=== PATIENT | female | born 1995 | race American Indian/Alaskan Native ===

== ENCOUNTER 2019-01-09 20:46 | Emergency (ER) | payer OTHER ==
[2019-01-09 21:18] VITALS: BP 112/63
--- NOTE | 2019-01-09 21:30 | Emergency Department Report ---
Blank Doc - Documentation Documentation: cc of right inner groin pain, swelling and burning x 2 days doesnt recal insect bite took ibu for pain ACC eval
--- NOTE | 2019-01-09 23:43 | Emergency Department Report ---
- General Chief complaint: Skin/Abscess/Foreign Body Stated complaint: BITE ON RIGHT THIGH Time Seen by Provider: 01/09/19 21:28 Source: patient Mode of arrival: Ambulatory Limitations: No Limitations - History of Present Illness Initial comments: 23-year-old Samo[place] female presents to the emergency room for a boil-like lesion to the right upper thigh 2 days. Patient states she felt something bite her why she was at her mother's hair salon and then when she got home she noticed swelling redness and itchiness. Patient put that she took ibuprofen today and reports that the swelling has gone down. Patient complains of pain at a 5 out of 10. Patient has no other complaints. MD complaint: insect bite/sting -: days(s) (2) Tetanus Up to Date: unsure Location: RLE (thigh) Severity scale (0 -10): 5 Quality: burning Consistency: intermittent Improves with: medication Worsens with: none Associated symptoms: denies other symptoms Treatments Prior to Arrival: NSAID - Related Data Previous Rx's Medication Instructions Recorded Last Taken Type Ibuprofen [Motrin 600 MG tab] 600 mg PO Q8H PRN #15 tablet 01/09/19 Unknown Rx diphenhydrAMINE [Benadryl CAP] 25 mg PO Q8HR PRN #15 capsule 01/09/19 Unknown Rx Allergies Allergy/AdvReac Type Severity Reaction Status Date / Time No Known Allergies Allergy Unverified 01/09/19 21:30 Abscess Boil HPI - HPI Chief Complaint: Skin/Abscess/Foreign Body Stated Complaint: BITE ON RIGHT THIGH Time Seen by Provider: 01/09/19 21:28 Home Medications: Previous Rx's Medication Instructions Recorded Last Taken Type Ibuprofen [Motrin 600 MG tab] 600 mg PO Q8H PRN #15 tablet 01/09/19 Unknown Rx diphenhydrAMINE [Benadryl CAP] 25 mg PO Q8HR PRN #15 capsule 01/09/19 Unknown Rx Allergies/Adverse Reactions: Allergies Allergy/AdvReac Type Severity Reaction Status Date / Time No Known Allergies Allergy Unverified 01/09/19 21:30 ED Review of Systems ROS: Stated complaint: BITE ON RIGHT THIGH Other details as noted in HPI Comment: All other systems reviewed and negative Constitutional: denies: chills, fever Eyes: denies: eye pain, eye discharge, vision change ENT: denies: ear pain, throat pain Respiratory: denies: cough, shortness of breath, wheezing Cardiovascular: denies: chest pain, palpitations Endocrine: no symptoms reported Gastrointestinal: denies: abdominal pain, nausea, diarrhea Genitourinary: denies: urgency, dysuria, discharge Musculoskeletal: denies: back pain, joint swelling, arthralgia Skin: lesions Neurological: denies: headache, weakness, paresthesias Psychiatric: denies: anxiety, depression Hematological/Lymphatic: denies: easy bleeding, easy bruising ED Past Medical Hx - Past Medical History Previous Medical History?: No - Surgical History Past Surgical History?: Yes Additional Surgical History: Tosillectomy - Social History Smoking Status: Never Smoker Substance Use Type: None - Medications Home Medications: Home Medications Medication Instructions Recorded Confirmed Last Taken Type Ibuprofen [Motrin 600 MG tab] 600 mg PO Q8H PRN #15 tablet 01/09/19 Unknown Rx diphenhydrAMINE [Benadryl CAP] 25 mg PO Q8HR PRN #15 capsule 01/09/19 Unknown Rx ED Physical Exam - General Limitations: No Limitations General appearance: alert, in no apparent distress - Head Head exam: Present: atraumatic, normocephalic - Eye Eye exam: Present: normal appearance - ENT ENT exam: Present: mucous membranes moist - Neck Neck exam: Present: normal inspection - Cardiovascular Cardiovascular Exam: Present: regular rate, normal rhythm. Absent: systolic murmur, diastolic murmur, rubs, gallop - Neurological Exam Neurological exam: Present: alert, oriented X3 - Psychiatric Psychiatric exam: Present: normal affect, normal mood - Expanded Skin Exam Expanded Type of lesion: Present: bite/sting Description of rash: Present: erythematous, macular. Absent: tenderness, swelling, discharge, fluctuant, indurated ED Course Vital Signs 01/09/19 01/09/19 21:16 21:29 Temperature 98.6 F 98.6 F Pulse Rate 79 83 Respiratory 18 18 Rate Blood Pressure 112/63 112/63 O2 Sat by Pulse 99 99 Oximetry Critical care attestation.: If time is entered above; I have spent that time in minutes in the direct care of this critically ill patient, excluding procedure time. ED Disposition Clinical Impression: Insect bite of thigh with local reaction Qualifiers: Encounter type: initial encounter Laterality: right Qualified Code(s): S70.361A - Insect bite (nonvenomous), right thigh, initial encounter; W57.XXXA - Bitten or stung by nonvenomous insect and other nonvenomous arthropods, initial encounter Disposition: DC-01 TO HOME OR SELFCARE Is pt being admited?: No Does the pt Need Aspirin: No Condition: Stable Instructions: Insect Bite or Sting (ED) Additional Instructions: Take medication as prescribed. Follow-up to primary care provider if any further concerns. Prescriptions: diphenhydrAMINE [Benadryl CAP] 25 mg PO Q8HR PRN #15 capsule PRN Reason: Itching Ibuprofen [Motrin 600 MG tab] 600 mg PO Q8H PRN #15 tablet PRN Reason: Pain Referrals: DEXTER SAUL MD [Primary Care Provider] - 3-5 Days
== END 2019-01-10 | disposition home or self-care (01) ==
LOC: ED 20:46
DX: S70.361A Insect bite (nonvenomous), right thigh, initial encounter (principal); Z90.89 Acquired absence of other organs; W57.XXXA Bitten or stung by nonvenomous insect and other nonvenomous arthropods, initial encounter; Y93.89 Activity, other specified; Y92.89 Other specified places as the place of occurrence of the external cause; Y99.8 Other external cause status
CPT/HCPCS: 99282

== ENCOUNTER 2019-10-16 14:06 | Emergency (ER) | payer SELFPAY ==
--- NOTE | 2019-10-16 15:01 | Event Note ---
ED Screening Note Date of service: 10/16/19 Time: 14:59 ED Screening Note: Pt complains of vaginal pain and sores x 4 days denies vaginal discharge or bleeding This initial assessment/diagnostic orders/clinical plan/treatment(s) is/are subject to change based on patients health status, clinical progression and re- assessment by fellow clinical providers in the ED. Further treatment and workup at subsequent clinical providers discretion. Patient/guardian urged not to elope from the ED as their condition may be serious if not clinically assessed and managed. Initial orders include: ACC
--- NOTE | 2019-10-16 20:51 | Emergency Department Report ---
ED Female HPI - General Chief complaint: Urogenital-Female Stated complaint: VAG PAIN Time Seen by Provider: 10/16/19 15:01 Source: patient Mode of arrival: Ambulatory Limitations: No Limitations - History of Present Illness Initial comments: Patient is a nulliparous 24-year-old -[place] female with no past medical history presents to the ED with complaint of acute onset persistent itchy burning painful ulcerated vaginal lesions for the last 2 days. Patient states that the pain is uncomfortable and is worse with any movement or finding urine. Patient denies fever, chills, dysuria, urinary frequency and urgency, dyspareunia, vaginal discharge, fever, chills, nausea, vomiting, back pain, vaginal bleeding, abdominal pain or diarrhea. MD Complaint: other (vaginal pain; ulcerated painful vaginal lesions) -: Sudden, days(s) (2) Location: other (vaginal) Radiation: non-radiating Severity: moderate Severity scale (0 -10): 5 Quality: burning, aching Consistency: constant Improves with: none Worsens with: none Are you Now?: No Last Menstrual Period: 10/12/19 EDC: 07/18/20 Associated Symptoms: denies other symptoms, rash (ulcerated painful vaginal lesion). denies: vaginal discharge, vaginal bleeding, shortness of breath, syncope - Related Data Sexually active: Yes : 0 Para: 0 A: 0 Previous Rx's Medication Instructions Recorded Last Taken Type Ibuprofen [Motrin 600 MG tab] 600 mg PO Q8H PRN #15 tablet 01/09/19 Unknown Rx diphenhydrAMINE [Benadryl CAP] 25 mg PO Q8HR PRN #15 capsule 01/09/19 Unknown Rx Acyclovir 400 mg PO Q8H #30 tablet 10/16/19 Unknown Rx Acyclovir [Acyclovir Ointment] 30 gm TP Q12H #1 tube 10/16/19 Unknown Rx Ibuprofen [Motrin] 600 mg PO Q8H PRN #24 tablet 10/16/19 Unknown Rx Ondansetron [Zofran Odt] 4 mg PO Q6HR PRN #15 tab.rapdis 10/16/19 Unknown Rx Sulfamethoxazole/Trimethoprim 1 each PO Q12H #20 tablet 10/16/19 Unknown Rx [Bactrim DS TAB] metroNIDAZOLE [Flagyl] 500 mg PO Q12HR #14 tab 10/16/19 Unknown Rx Allergies Allergy/AdvReac Type Severity Reaction Status Date / Time No Known Allergies Allergy Unverified 01/09/19 21:30 ED Review of Systems ROS: Stated complaint: VAG PAIN Other details as noted in HPI Constitutional: no symptoms reported, malaise Eyes: denies: eye pain, eye discharge, vision change ENT: denies: ear pain, throat pain Respiratory: denies: cough, shortness of breath, wheezing Cardiovascular: denies: chest pain, palpitations, dyspnea on exertion Endocrine: no symptoms reported Gastrointestinal: denies: abdominal pain, nausea, vomiting, diarrhea Genitourinary: other (ulcerated painful vesicular lesions in the vaginal labia minora). denies: urgency, dysuria, discharge Musculoskeletal: denies: back pain, joint swelling, arthralgia Skin: denies: rash, lesions Neurological: denies: headache, weakness, paresthesias Psychiatric: denies: anxiety, depression Hematological/Lymphatic: denies: easy bleeding, easy bruising ED Past Medical Hx - Past Medical History Previous Medical History?: No - Surgical History Past Surgical History?: Yes Additional Surgical History: Tosillectomy - Social History Smoking Status: Never Smoker Substance Use Type: Alcohol, Marijuana - Medications Home Medications: Home Medications Medication Instructions Recorded Confirmed Last Taken Type Ibuprofen [Motrin 600 MG tab] 600 mg PO Q8H PRN #15 tablet 01/09/19 Unknown Rx diphenhydrAMINE [Benadryl CAP] 25 mg PO Q8HR PRN #15 capsule 01/09/19 Unknown Rx Acyclovir 400 mg PO Q8H #30 tablet 10/16/19 Unknown Rx Acyclovir [Acyclovir Ointment] 30 gm TP Q12H #1 tube 10/16/19 Unknown Rx Ibuprofen [Motrin] 600 mg PO Q8H PRN #24 tablet 10/16/19 Unknown Rx Ondansetron [Zofran Odt] 4 mg PO Q6HR PRN #15 tab.rapdis 10/16/19 Unknown Rx Sulfamethoxazole/Trimethoprim 1 each PO Q12H #20 tablet 10/16/19 Unknown Rx [Bactrim DS TAB] metroNIDAZOLE [Flagyl] 500 mg PO Q12HR #14 tab 10/16/19 Unknown Rx ED Physical Exam - General Limitations: No Limitations General appearance: alert, in no apparent distress - Head Head exam: Present: atraumatic, normocephalic, normal inspection - Eye Eye exam: Present: normal appearance, PERRL, EOMI Pupils: Present: normal accommodation - ENT ENT exam: Present: normal exam, normal orophraynx, mucous membranes moist, TM's normal bilaterally, normal external ear exam - Neck Neck exam: Present: normal inspection, full ROM - Respiratory Respiratory exam: Present: normal lung sounds bilaterally. Absent: respiratory distress, wheezes, rales, rhonchi, stridor, chest wall tenderness - Cardiovascular Cardiovascular Exam: Present: regular rate, normal rhythm, normal heart sounds. Absent: systolic murmur, diastolic murmur, rubs, gallop - GI/Abdominal GI/Abdominal exam: Present: soft, normal bowel sounds. Absent: tenderness, guarding, hyperactive bowel sounds, organomegaly, mass - External exam: Present: erythema, lesions (ulcerated erythematous tender vesicular lesions in the labia minor and vaginal introitus) Bi-manual exam: Present: other (female RN relay dispatcher present during the pelvic exam.) - Extremities Exam Extremities exam: Present: normal inspection, full ROM, normal capillary refill - Back Exam Back exam: Present: normal inspection, full ROM. Absent: tenderness, CVA tenderness (R), muscle spasm - Neurological Exam Neurological exam: Present: alert, oriented X3, CN II-XII intact, normal gait, reflexes normal - Psychiatric Psychiatric exam: Present: normal affect, normal mood - Skin Skin exam: Present: warm, dry, intact, normal color. Absent: rash ED Course Vital Signs 10/16/19 14:47 Temperature 98.6 F Pulse Rate 77 Respiratory 18 Rate Blood Pressure 128/66 O2 Sat by Pulse 99 Oximetry ED Medical Decision Making - Medical Decision Making This is a 24-year-old female who presented to the ED with painful vaginal area due to erythematous ulcerated vesicular lesions. In the ED, patient is alert and oriented 3 and is not in distress. Urinalysis shows urinary tract infection. Wet prep shows bacterial vaginosis. Physical exam reveals ulcerated erythematous vesicular lesion in the labia minora consistent with acute genital herpes flare. Patient was discharged home on antibiotics and antiviral prescriptions as well as pain medications. Patient was advised to follow-up with her [facility]ICAL CONSULTANT physician or primary care physician in 7-10 days for reevaluation or return to the ED immediately if symptoms get worse. - Differential Diagnosis Bacterial vaginosis; Genital herpes; UTI; STD Critical care attestation.: If time is entered above; I have spent that time in minutes in the direct care of this critically ill patient, excluding procedure time. ED Disposition Clinical Impression: Herpes simplex of female genitalia, Bacterial vaginosis, Acute urinary tract infection Disposition: TO HOME OR SELFCARE Is pt being admited?: No Does the pt Need Aspirin: No Condition: Stable Instructions: Genital Herpes Simplex (ED), Bacterial Vaginosis (ED), Urinary Tract Infection in Women (ED) Additional Instructions: Take medications with food, drink plenty of fluids and follow-up with your primary care physician or [facility]ICAL CONSULTANT physician in 7-10 days for reevaluation. Return to the ED immediately if symptoms get worse. Prescriptions: Acyclovir 400 mg PO Q8H #30 tablet Acyclovir [Acyclovir Ointment] 30 gm TP Q12H #1 tube Sulfamethoxazole/Trimethoprim [Bactrim DS TAB] 1 each PO Q12H #20 tablet metroNIDAZOLE [Flagyl] 500 mg PO Q12HR #14 tab Ibuprofen [Motrin] 600 mg PO Q8H PRN #24 tablet PRN Reason: Pain Ondansetron [Zofran Odt] 4 mg PO Q6HR PRN #15 tab.rapdis PRN Reason: Nausea Referrals: ANGELA BILLINGS MD [Staff Physician] - 7-10 days Forms: STI Treatment and Prevention Time of Disposition: 21:10 Print Language: [id number]
[2019-10-16 21:34] LABS: Bacteria,Urine 1+ /HPF (Negative); Bilirubin,Urine NEG (Negative); Blood,Urine NEG (Negative); Color,Urine Yellow (Yellow); HCG Qualitative,Urine Negative (Negative); Mucus,Urine 2+ /HPF; Protein,Urine <15 mg/dL mg/dL (Negative); Urobilinogen,Urine < 2.0 mg/dL (<2.0)
[2019-10-17 02:43] VITALS: BP 128/78
== END 2019-10-16 22:20 | disposition home or self-care (01) ==
LOC: ED 14:06
DX: N76.0 Acute vaginitis (principal); B00.9 Herpesviral infection, unspecified; N39.0 Urinary tract infection, site not specified; F10.10 Alcohol abuse, uncomplicated; F12.10 Cannabis abuse, uncomplicated; Z90.89 Acquired absence of other organs; Z79.899 Other long term (current) drug therapy
CPT/HCPCS: 81001; 81025; 87210; 87591